=== PATIENT | male | born 2000 | race Caucasian/White ===

== ENCOUNTER 2024-02-19 16:58 | Emergency (ER) | payer OTHER ==
[2024-02-19 16:59] VITALS: TEMP 100
[2024-02-19 17:44] LABS: BASO % 0.4 % (0.0-1.0); EOS % 0.4 % (0.0-3.0); HEMATOCRIT 48.4 % (42.0-52.0); HEMOGLOBIN 16.8 g/dl (13.5-17.5); LYMPH # 0.6 10^3/uL (1.5-5.0); LYMPH % 5.9 % (24.0-44.0); MEAN CORPUSCULAR HEMOGLOBIN 29.6 pg (27.0-33.0); MEAN CORPUSCULAR HGB CONC 34.7 g/dl (32.0-36.5); MEAN CORPUSCULAR VOLUME 85.4 fl (80.0-96.0); MONO # 0.8 10^3/uL (0.0-0.8); MONO % 8.4 % (2.0-8.0); NEUTROPHILS # 8.4 10^3/uL (1.5-8.5); NEUTROPHILS % 84.6 % (36.0-66.0); PLATELET COUNT, AUTOMATED 237 10^3/uL (150-450); RED BLOOD COUNT 5.67 10^6/uL (4.30-6.10); WHITE BLOOD COUNT 9.9 10^3/uL (4.0-10.0)
[2024-02-19 18:09] LABS: LIPASE 39 U/L (12-53)
[2024-02-19 18:11] LABS: ALBUMIN 4.8 G/DL (3.2-5.2); ALKALINE PHOSPHATASE 74 U/L (46-116); ALT/SGPT 23 U/L (7.0-40); AST/SGOT 17 U/L (<34); BILIRUBIN,DIRECT 0.2 MG/DL (<0.4); BILIRUBIN,TOTAL 0.8 MG/DL (0.3-1.2); BLOOD UREA NITROGEN 22 MG/DL (9-23); CALCIUM LEVEL 9.9 MG/DL (8.5-10.1); CARBON DIOXIDE LEVEL 25 MMOL/L (20-31); CHLORIDE LEVEL 103 MMOL/L (98-107); CREATININE FOR GFR 1.05 MG/DL (0.70-1.30); GLOMERULAR FILTRATION RATE > 60.0 (>60); GLUCOSE, FASTING 120 MG/DL (60-100); POTASSIUM SERUM 4.2 MMOL/L (3.5-5.1); SODIUM LEVEL 139 MMOL/L (136-145); TOTAL PROTEIN 7.7 G/DL (5.7-8.2)
[2024-02-19] MEDS: ONDANSETRON 4MG 2ML VIAL IV ONE (18:32)
[2024-02-19] MEDS ORDERED: ISOVUE-370 76% 100ML VIAL As Ordered ONE (18:39)
[2024-02-19] MEDS: ACETAMINOPHEN TAB 650MG DOSE (2X325MG) PO ONE (18:42)
[2024-02-19] MEDS: MORPHINE 4 MG/ML 1ML VIAL IV ONE (18:42)
[2024-02-19] MEDS: NS 1,000 ML IV ONE (18:43)
[2024-02-19] MEDS: GASTROGRAFIN SOLUTION 30ML PO SCH (19:48)
[2024-02-19 21:54] VITALS: BP 108/58; O2SAT 100
[2024-02-19] MEDS ORDERED: IBUP-1114 PO (22:05)
[2024-02-19] MEDS ORDERED: HOME MED LIST COMPLETE! XX SCH ×2 (22:05→22:10)
[2024-02-19] MEDS ORDERED: ONDA4TAB6 PO (22:21)
== END 2024-02-19 22:31 | disposition home or self-care (01) ==
LOC: M ED 16:58
DX: R11.10 Vomiting, unspecified (principal); R19.7 Diarrhea, unspecified
CPT/HCPCS: 74177; 80048; 80076; 83690; 85025; 96361; 96374; 96375; 99283; J2405; Q9967